=== PATIENT | female | born 1970 | race Asian ===

== ENCOUNTER 2024-09-23 12:55 | Outpatient (REF) | payer OTHER, SELFPAY ==
--- OUTSIDE RECORDS SUMMARY | 2024-09-23 13:54 | XMS_ITS | Patient Health Record ---
Author Organization [employer] Address [address] [facility] [address] [place] [address] Care Team Providers Care Legal Receptionist Name Role Phone Paige Lundberg Unavailable [phone] Allergies Allergen (clinical drug ingredient) Drug/Non Drug Allergy documented on EMR Reaction Allergy Type Onset Date Status Contrast Dye (uncoded) Unknown Allergy Active Reason For Referral No Information Social History Tobacco Use: Social History Observation [...] last smoked? Grea ter than 10 years Problems Problem Type SNOMED Code ICD Code Onset Dates Problem Status W/U Status Risk Notes Problem Cervical high risk human papillomavirus (HPV) DNA test positive (R87.810) Active confirmed Problem Fibroadenosis of left breast (1148197051722377 0) Fibroadenosis of left breast (N60.22) Active confirmed Encounters Encounter Location Date Provider Diagnosis [facility] [address] [facility] [address] [place] [address] 05/02/2024 Paige Lundberg Plan Of Treatment Pending Test Test Name Order Date MM Digital Mammo Screening 09/27/2022 Insurance Providers Payer Name Payer Address Payer Phone Subscriber Number Group Number Insured Name Patient Relationship to Insured Coverage Start Date Coverage End Date [facility] [address] [place] [address] [id number] DEJON BARON Spouse - patient is the spouse of the insured Medical (General) History Medical History History ICD Code Fibroadenosis of left breast N60.22 Inconclusive mammogram R92.2 Cervical high risk human papillomavirus (HPV) DNA test positive R87.810 Mammographic heterogeneous density, bila teral breasts R92.333 Dense breasts, unspecified R92.30 Surgical History Surgery Date(Month/Year) Left Breast Biopsy Hospitalization History Reason Date(Month/Year) 1 Vaginal Delivery
== END 2024-09-23 12:56 | disposition home or self-care (01) ==
LOC: CF 12:55
DX: Z13.89 Encounter for screening for other disorder (principal)

== ENCOUNTER 2024-10-02 09:29 | Outpatient (AMB) | payer OTHER, SELFPAY ==
--- OUTSIDE RECORDS SUMMARY | 2024-10-02 09:59 | XMS_ITS | Patient Health Record ---
Author Organization [employer] Address [address] [facility] [address] [place] [address] Care Team Providers Care Hub Bander Name Role Phone Paige Lundberg Unavailable [phone] Allergies Allergen (clinical drug ingredient) Drug/Non Drug [...] Active confirmed Problem Fibroadenosis of left breast (6421610225823558 0) Fibroadenosis of left breast (N60.22) Active confirmed Encounters Encounter Location Date Provider Diagnosis [facility] [facility] [address] [facility] [address] [place] [address] 05/02/2024 Paige Lundberg Plan Of Treatment Pending Test Test Name Order Date MM Digital Mammo Screening 09/27/2022 Insurance Providers Payer Name Payer Address Payer Phone Subscriber Number Group Number Insured Name Patient Relationship to Insured Coverage Start Date Coverage End Date [facility] [address] [place] [address] [id number] DEJON BARON Spouse - patient is the [...]
--- OUTSIDE RECORDS SUMMARY | 2024-10-02 10:00 | XMS_ITS ---
Author Name [facility] Organization Unknown Care Team Organization Name Specialty Phone Email Start Date End Da te [employer] 01/22/2024
[2024-10-02 10:15] VITALS: BMI 28.3
--- NOTE | 2024-10-02 10:15 | MHC.OFFVIS ---
Vital Signs 10/02/24 10:15 Height 5 ft 1 in Weight 150 lb BMI 28.3 Intake Visit Reasons: FC-UC/ F/u Possible RT hand fx Intake Note: right hand dominant female presents today for her right hand W/C injury DOI 09/05/24. 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 She put her hand out to break her fall and felt immediate pain. Seen at urgent care where xrays were done and was told its sprain. She returned 6 days later and was told she she has fracture. Currently states she has been wearing a brace for support however at times she has pain with brace on. States ice helps. Denies numbness, tingling or locking of any finger. Allergies iodine Adverse Reaction (Intermediate, Verified 10/02/24 10:19) rashes HPI HPI FC-UC/ F/u Possible RT hand fx: Details: Fabiola is a 53 year old right hand dominant woman who presents for a right wrist injury, DOI: ~09/05/24. This is a workplace injury. She was seen at Urgent care and given a velcro wrist splint. She complains of pain in her whole wrist. She says she has more pain when her splint is removed, but she occasionally has pain even while wearing the splint. She finds relief from icing her wrist. She says she is unable to java lead developer & twist any objects, including opening jars or turning the rascon in her car. She denies any numbness or tingling. 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 Review of Systems Const All systems reviewed & are unremarkable except as noted in HPI and below Physical Exam Vital Signs: BMI result Body Mass Index 28.3 Const General: cooperative, healthy appearing and no acute distress Orientation/consciousness: patient oriented x3 HEENT Head: Yes normocephalic and Yes atraumatic Eyes EOM: EOMs intact bilaterally Resp Effort & Inspection: normal respiratory effort and able to speak in complete sentences Cardio Jugular venous distension: no JVD Skin General skin exam: turgor normal Rashes: no rashes Neuro General: patient oriented x3 Extrem Other: Evaluation of Right Upper Extremity: The patient is alert, oriented, and in no acute distress Neuro: Median, Ulnar, Radial nerves motor and sensory intact and sensation is normal to the tips of all digits Vascular: Cap refill brisk ROM: She can make a fist and extend all her digits Wrist ROM: Flexion: ~60 degrees Extension: ~60 degrees Nearly full & symmetrical pronosupination Skin: No lacerations or abrasions. General: No Ecchymosis. No Erythema or evidence of infection. Minimal tenderness over the distal radius Mild tenderness over the 4th metacarpal No tenderness over the DRUJ or distal ulna DRUJ stable on exam No snuffbox or scaphoid tubercle tenderness Radiographs: 3 views of the right hand were taken & viewed by me today in clinic. They show a transverse nondisplaced distal radius fracture, with satisfactory fracture alignment & some evidence of interval bony healing Psych Appearance: grossly normal Affect: normal affect Attitude: cooperative Office Procedures AMB Fracture Care Details: Distal radius fracture 66787 Fracture Billing Code: Fracture Billing Code Assessment & Plan Assessment & Plan (1) Distal radius fracture, right: Code(s): S52.501A - Unspecified fracture of the lower end of right radius, initial encounter for closed fracture Category: Medical Plan Assessment & Plan: 1. Right distal radius fracture, S/P fall DOI: ~09/05/24 This was managed conservatively at Urgent care This is a workplace injury I educated her about this condition I discussed non-operative treatment options We will continue to manage this non-operatively She will continue to wear her velcro wrist splint when out of the house with daily activities, or work around the house, for the next 2 weeks She will remove her splint at rest and at night I discussed activity modifications, she is to lift nothing heavier than ~2lbs for the next week, and slowly increase her weight limit as tolerated over the next month. She is to avoid any heavy lifting, impact activities, or falling for the next 4 weeks She will perform gentle finger & wrist ROM exercises at home, out of her splint. 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 She was given a note for work to return on light duty, with a 5lb weight limit, effective 10/14/24, for 2 weeks. She can return to full duty in 4 weeks from today She will follow up in 4 weeks for a ROM check. Anticipate return to full duty at that time Scribed for Zee Alarcon MD by Antonio Foss, vice president medical affairs, on 10/02/24 at 10:25 AM, EST. Orders: Orders XR hand RT min 3V Today M79.641 - Pain in right hand Coding Level of Care Code New Pt Level 4 (40298) Diagnoses Distal radius fracture, right S52.501A CPT Codes Fracture Care - Fracture Billing Code: Fracture Billing Code ([id number])
== END 2024-10-02 10:55 | disposition home or self-care (01) ==
LOC: HO.HOS 09:29
PROVIDERS: Visit Provider Orthopaedic Surgery
DX: S52.501A Unspecified fracture of the lower end of right radius, initial encounter for closed fracture (principal)
CPT/HCPCS: 99204

== ENCOUNTER → 2024-10-02 09:34 | Outpatient (BNV) | payer OTHER, SELFPAY | PROVIDERS: Visit Provider Radiology Diagnostic Radiology | DX: M79.641 Pain in right hand (principal) | CPT/HCPCS: 73130 ==

== ENCOUNTER 2024-10-02 11:05 | Outpatient (REF) | payer OTHER, SELFPAY ==
--- NOTE | ~2024-10-02 | XR_ITS ---
EXAMINATION: XR HAND, RIGHT CLINICAL INFORMATION: M79.641 - Pain in right hand COMPARISON: Right wrist 09/06/2024. TECHNIQUE: PA, lateral, and oblique views of the right hand. FINDINGS: No fracture, dislocation, or suspicious bone lesion. There is normal alignment. No periarticular osteopenia. No erosions. Joint spaces appear normal. Carpal bones are intact and normally aligned. Normal soft tissues. XR/XR hand RT min 3V IMPRESSION: Normal right hand. Electronically signed by: Taco Romano MD 10/02/2024 09:55 AM EDT
--- OUTSIDE RECORDS SUMMARY | 2024-10-03 11:58 | XMS_ITS | Patient Health Record ---
Author Organization [employer] [facility] Address [address] [address] Care Team Providers Care Bake Room Worker Name Role Phone Paige Lundberg Unavailable [phone] Allergies Allergen (clinical drug ingredient) Drug/Non Drug [...] Problem Status W/U Status Risk Notes Problem Human papilloma virus deoxyribonucleic acid test positive, high risk on vaginal specimen (407940020765177) Cervical high risk human papillomavirus (HPV) DNA test positive (R87.810) Active confirmed Problem Fibroadenosis of left breast (91681637651664503) Fibroadenosis of left breast (N60.22) Active confirmed Encounters Encounter Location Date Provider Diagnosis [facility] [address] [address] 05/02/2024 Paige Lundberg Plan Of Treatment Pending Test Test Name Order Date MM Digital Mammo Screening 09/27/2022 Insurance Providers Payer Name Payer Address Payer Phone Subscriber Number Group Number Insured Name Patient Relationship to Insured Coverage Start Date Coverage End Date [facility] [address] [place] [address] [phone] [id number] DEJON BARON Spouse - patient is the [...]
== END 2024-10-02 11:06 | disposition home or self-care (01) ==
LOC: HO.HOSX 11:05
PROVIDERS: Visit Provider Orthopaedic Surgery
DX: S52.501D Unspecified fracture of the lower end of right radius, subsequent encounter for closed fracture with routine healing (principal); M79.641 Pain in right hand; W01.0XXD Fall on same level from slipping, tripping and stumbling without subsequent striking against object, subsequent encounter; Y99.0 Civilian activity done for income or pay; Y92.242 Post office as the place of occurrence of the external cause
CPT/HCPCS: 73130; 99202

== ENCOUNTER 2024-10-29 15:16 | Outpatient (AMB) | payer OTHER, SELFPAY ==
[2024-10-29 15:21] VITALS: BMI 28.3
--- NOTE | 2024-10-29 15:21 | MHC.OFFVIS ---
Vital Signs 10/29/24 15:21 Height 5 ft 1 in Weight 150 lb BMI 28.3 Intake Visit Reasons: O/V Right distal radius fx DOI:09/05/24 Intake Note: Fabiola 53 yr old right hand dominant female presents today for her follow up visit for her Right distal radius fracture, S/P fall DOI: ~09/05/24. At her last visit she was advise to wear with brace with activities. She was also advise to work on her ROM. Currently states she has been able to return to her normal daily activities and is able to do more however patient states eh is having a hard time at work with the 5 lb restrictions. States she is having pain thought out the day. Xrays updated in office. Allergies iodine Adverse Reaction (Intermediate, Verified 10/29/24 15:25) rashes HPI HPI O/V Right distal radius fx DOI:09/05/24: Details: Fabiola is a 53 year old right hand dominant woman who returns for her right distal radius fracture, DOI: ~09/05/24. This is a workplace injury. She was seen at Urgent care and given a velcro wrist splint. She says her pain has started to improve overall, and has managed to return to most normal lightweight activities. She has been working in the [employer] office with a 5lb weight limit for the last 2 weeks, but she says this is difficult for her and she experiences wrist pain throughout the day. She says her pain begins in her middle finger and radiates into her wrist, and she says this occasionally wakes her up at night. She has been wearing her splint as instructed and working on ROM exercises at home. She denies any numbness or tingling. 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 Radiographs: 3 views of the right hand were taken & viewed by me today in clinic. They show a transverse nondisplaced distal radius fracture, non-displaced, with satisfactory fracture alignment & evidence of interval bony healing best seen on the PA view. Assessment & Plan Assessment & Plan (1) Distal radius fracture, right: Code(s): S52.501A - Unspecified fracture of the lower end of right radius, initial encounter for closed fracture Category: Medical Plan Assessment & Plan: 1. Right distal radius fracture, S/P fall DOI: ~09/05/24 This was managed conservatively at Urgent care This is a workplace injury I educated her about this condition I discussed non-operative treatment options We will continue to manage this non-operatively She will discontinue her splint at this time. I discussed activity modifications, she is to use her hand for normal daily activities & continue to work on ROM exercises at home. She is still to avoid any impact activities or falls for the next 4 weeks. I explained that we anticipate full fracture healing 8-12 weeks post injury I ordered OT hand therapy to work on strengthening and normalizing function in anticipation of return to full duty next visit. 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 She was given a note for work to return to light duty, with a 5lb weight limit with her RUE, effective 10/30/24, until her next appointment. Allow time to ice for ten minutes q-shift. She will follow up in 4 weeks to see how she is doing and to discuss her return to work. No X-rays unless she continues to have pain. Scribed for Zee Alarcon MD by Antonio Foss, medical radiation therapist, on 10/29/24 at 4:05 PM, EST. Orders: Orders OT Evaluation and Treatment Today S52.501A - Unspecified fracture of the lower end of right radius, initial encounter for closed fracture Coding Level of Care Code Global (60339) Diagnoses Distal radius fracture, right S52.501A
--- OUTSIDE RECORDS SUMMARY | 2024-10-29 16:33 | XMS_ITS | Patient Health Record ---
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
== END 2024-10-29 16:21 | disposition home or self-care (01) ==
LOC: HO.HOS 15:17
PROVIDERS: Visit Provider Orthopaedic Surgery
DX: S52.501A Unspecified fracture of the lower end of right radius, initial encounter for closed fracture (principal)
CPT/HCPCS: 99213

== ENCOUNTER → 2024-10-29 15:16 | Outpatient (BNVA) | payer OTHER, SELFPAY | PROVIDERS: Visit Provider Orthopaedic Surgery | DX: M79.641 Pain in right hand (principal); S52.501A Unspecified fracture of the lower end of right radius, initial encounter for closed fracture | CPT/HCPCS: 99212 ==

== ENCOUNTER 2024-11-26 10:44 | Outpatient (REF) | payer OTHER, BC, SELFPAY ==
--- OUTSIDE RECORDS SUMMARY | 2023-10-03 04:40 | XMS_ITS ---
Author Organization [facility] Address [address] [place] [address] Care Team Providers Care Outplacement Consultant Name Role Phone Paige Lundberg Unavailable [phone] Allergies Allergen (clinical drug ingredient) Drug/Non Drug Allergy documented on EMR Reaction Allergy Type Onset Date Status Contrast Dye (uncoded) Unknown Allergy Active REASON FOR VISIT Annual PROCESS TECH Physical Encounters Encounter Location Date Provider Diagnosis [facility] [address] [address] 10/03/2023 Paige Lundberg Plan Of Treatment No Information Progress Notes * TIEN BARONDOB:1970 (53 yo F)Acc No.[id number]:10/03/2023 PROGRESS NOTES Patient: TIEN MURILLO Appointment Provider: Sima Lundberg M.D. :1970 A ge:52 Y S ex:Female Date:10/03/2023 Address:[address] [place], [place] [phone] Subjective: * Chief Complaints: * 1 . Annual PROCESS TECH Physical. * Medical History: F ibroadenosis of left breast, Inconclusive mammogram, Cervical high risk human papillomavirus (HPV) DNA test positive, Mammographic heterogeneous density, bilateral breasts. * Front Office Supervisor History: G ravida/ Para 1 /1. S [...] Electronic signature of Dawit Lundberg MD on 11/27/2024 at 01:35 PM EDT Sign off status: Pending * Appointment Provider: Sima Lundberg M.D. Date: 0 10/03/2023 Generated for Clifton quijano/Florentin/Dawsonitting on: 0 11/27/2024 01:35 PM EDT
--- OUTSIDE RECORDS SUMMARY | 2024-01-26 07:00 | XMS_ITS ---
Author Organization [facility] Address [address] [place] [address] Care Team Providers Care Job Developer For Deaf Adults Name Role Phone Paige Lundberg Unavailable [phone] Allergies Allergen (clinical drug ingredient) Drug/Non Drug Allergy documented on EMR Reaction Allergy Type Onset Date Status Contrast Dye (uncoded) Unknown Allergy Active REASON FOR VISIT Annual (YELLOW FORM DONE) Encounters Encounter Location Date Provider Diagnosis [facility] [address] [address] [address] 01/26/2024 Paige Lundberg Plan Of Treatment No Information Progress Notes * TIEN BARONDOB:1970 (53 yo F)Acc No.[id number]:01/26/2024 PROGRESS NOTES Patient: TIEN MURILLO Appointment Provider: Sima Lundberg M.D. :1970 A ge:53 Y S ex:Female Date:01/26/2024 Address:[address] [place], [place] [id number] Subjective: * Chief Complaints: * 1 . Annual (YELLOW FORM DONE). * Medical History: F ibroadenosis of left breast, Inconclusive mammogram, Cervical high risk human papillomavirus (HPV) DNA test positive, Mammographic heterogeneous density, bilateral breasts. * Calciner Operator Helper History: G ravida/ Para 1 /. S [...] 03/27/2023 Generated for Clifton quijano/Florentin/Dawsonitting on: 0 11/27/2024 01:35 PM EDT
--- OUTSIDE RECORDS SUMMARY | 2024-05-02 09:00 | XMS_ITS ---
Author Organization [facility] Address [address] [place] [address] Care Team Providers Care Rattlesnake Farmer Name Role Phone Paige Lundberg Unavailable [phone] Allergies Allergen (clinical drug ingredient) Drug/Non Drug Allergy documented on EMR Reaction Allergy Type Onset Date Status Contrast Dye (uncoded) Unknown Allergy Active REASON FOR VISIT Annual (YELLOW FORM DONE) Social History Tobacco Use: Social History Observation Description Date Details (start date - stop date) Former Smoker NA - NA Sexual History Question Answer Notes Had sex in the past 12 months (vaginal, oral, or anal)? No AUDIT-C (Standard) Question Answer Notes Did you have a drink containing alcohol in the p ast year? No Points 0 Interpretation Negative Tobacco Control (Standard) Question Answer Notes Tobacco use: Former smoker How long has it been since you last smoked? Grea ter than 10 years Encounters Encounter Location Date Provider Diagnosis [address] [address] 05/02/2024 Paige Lundberg Plan Of Treatment No Information Progress Notes * BALTAZAR BARONDOB:1970 (53 yo F)Acc No.[id number]:05/02/2024 PROGRESS NOTES Patient: TIEN MURILLO Appointment Provider: Sima Lundberg M.D. :1970 A ge:53 Y S ex:Female Date:05/02/2024 Address:[address] [place] [address] Subjective: * Chief Complaints: * 1 . Annual (YELLOW FORM DONE). * Medical History: F ibroadenosis of left breast, Inconclusive mammogram, Cervical high risk human papillomavirus (HPV) DNA test positive, Mammographic heterogeneous density, bilateral breasts, Dense breasts, unspecified. * Throw Out Clerk History: G ravida/ Para 1 /1. S [...] 1 . N VD 1 . * Social History: T obacco Use: T obacco Control (Standard) T obacco use: F ormer smoker H ow long has it been since you last smoked??Greater than 10 years S exual History: S exual History H ad sex in the past 12 months (vaginal, oral, or anal)? N o Details of Sexual History A re you sexually active? N o D rugs/Alcohol: D rugs H ave you used drugs other than those for medical reasons in the past 12 months? N o M iscellaneous: C hildren: yes, 1. Exercise: yes, yoga, pilates, walking. Home smoke detector use: yes. Marital status: . Natural support system: yes. 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 Sexually active: no. D rug/Alcohol: A ANABELLA-C (Standard) D id you have a drink containing alcohol in the past year? N o P oints 0 I nterpretation N egative * Allergies: C ontrast Dye: Allergy. Objective: * Vitals: Assessment: Plan: * Treatment: * Images: Billing Information: * Visit Code: * Procedure Codes: * Electronic signature of Dawit Lundberg MD on 11/27/2024 at 01:35 PM EDT Sign off status: Pending * Appointment Provider: Sima Lundberg M.D. Date: 0 05/02/2024 Generated for Clifton quijano/Florentin/eTgennaitting on: 0 11/27/2024 01:35 PM EDT
--- NOTE | ~2024-11-26 | XR_ITS ---
EXAMINATION: XR WRIST 3 OR MORE VIEWS RIGHT HISTORY: M25.531 - Pain in right wrist COMPARISON: Comparison is made with the prior examination dated 10/02/2024. FINDINGS: Three views of the right wrist are submitted. Osseous mineralization is normal. There is no fracture or dislocation. The joint spaces are preserved. The soft tissues are unremarkable. XR/XR wrist RT min 3V IMPRESSION: Unremarkable examination of the right wrist. Electronically signed by: Jose Molina MD 11/26/2024 03:45 PM EDT
--- OUTSIDE RECORDS SUMMARY | 2024-11-27 13:36 | XMS_ITS | Patient Health Record ---
Author Organization 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
== END 2024-11-26 10:45 | disposition home or self-care (01) ==
LOC: HO.HOSX 10:44
PROVIDERS: Visit Provider Orthopaedic Surgery
DX: S52.501D Unspecified fracture of the lower end of right radius, subsequent encounter for closed fracture with routine healing (principal); W19.XXXD Unspecified fall, subsequent encounter
CPT/HCPCS: 73110; 99212

== ENCOUNTER 2024-11-26 15:26 | Outpatient (AMB) | payer OTHER, SELFPAY ==
--- OUTSIDE RECORDS SUMMARY | 2023-10-03 04:40 | XMS_ITS ---
Author Organization [facility] Address [address] [place] [address] Care Team Providers Care Motor Analyst Name Role Phone Paige Lundberg Unavailable [phone] Allergies Allergen (clinical drug ingredient) Drug/Non Drug Allergy documented on EMR Reaction Allergy Type Onset Date Status Contrast Dye (uncoded) Unknown Allergy Active REASON FOR VISIT Annual CLINICAL SCIENCE LIAISON Physical Encounters Encounter Location Date Provider Diagnosis [facility] [address] [address] 10/03/2023 Paige Lundberg Plan Of Treatment No Information Progress Notes * TINE BARONDOB:1970 (53 yo F)Acc No.[id number]:10/03/2023 PROGRESS NOTES Patient: TIEN MURILLO Appointment Provider: Sima Lundberg M.D. :1970 A ge:52 Y S ex:Female Date:10/03/2023 Address:[address] [place], [place] [id number] Subjective: * Chief Complaints: * 1 . Annual CLINICAL SCIENCE LIAISON Physical. * Medical History: F ibroadenosis of left breast, Inconclusive mammogram, Cervical high risk human papillomavirus (HPV) DNA test positive, Mammographic heterogeneous density, bilateral breasts. * Office Machine Inspector History: G ravida/ Para 1 /1. S exual activity n ot currently sexually active. L ast Pap Smear: NIL, NEG HPV, Endometrial Cells on pap, 1989. M ammogram: 50-75% density, 06/22/21, 50-75% density. A bnormal Pap Smear: H PV 1988. L MP and menses M gregory. C olonoscopy n o. * OB History: T otal pregnancies 1 . T otal living children 1 . N VD 1 . * Allergies: C ontrast Dye: Allergy. Objective: * Vitals: Assessment: Plan: * Treatment: * Images: Billing Information: * Visit Code: * Procedure Codes: * Electronic signature of Dawit Lundberg MD on 11/26/2024 at 06:48 PM EDT Sign off status: Pending * Appointment Provider: Sima Lundberg M.D. Date: 0 10/03/2023 Generated for Clifton quijano/Florentin/Dawsonitting on: 0 11/26/2024 06:48 PM EDT
--- OUTSIDE RECORDS SUMMARY | 2024-01-26 07:00 | XMS_ITS ---
Author Organization [facility] Address [address] [place] [address] Care Team Providers Care Pet Sitter Name Role Phone Paige Lundberg Unavailable [phone] Allergies Allergen (clinical drug ingredient) Drug/Non Drug Allergy documented on EMR Reaction Allergy Type Onset Date Status Contrast Dye (uncoded) Unknown Allergy Active REASON FOR VISIT Annual (YELLOW FORM DONE) Encounters Encounter Location Date Provider Diagnosis [facility] [address] [address] 01/26/2024 Paige Lundberg Plan Of Treatment No Information Progress Notes * TIEN BARONDOB:1970 (53 yo F)Acc No.[id number]:01/26/2024 PROGRESS NOTES Patient: TIEN MURILLO Appointment Provider: Sima Lundberg M.D. :1970 A ge:53 Y S ex:Female Date:01/26/2024 Address:[address] [place], [place] [id number] Subjective: * Chief Complaints: * 1 . Annual (YELLOW FORM DONE). * Medical History: F ibroadenosis of left breast, Inconclusive mammogram, Cervical high risk human papillomavirus (HPV) DNA test positive, Mammographic heterogeneous density, bilateral breasts. * Pals Specialist History: G ravida/ Para 1 /. S exual activity n ot currently sexually active. L ast Pap Smear: NIL, NEG HPV, Endometrial Cells on pap, 1989. M ammogram: 50-75% density, 4/12/22, 50-75% density. A bnormal Pap Smear: H PV 1989. L MP and menses M gregory. C olonoscopy n o. * OB History: T otal pregnancies 1 . T otal living children 1 . N VD 1 . * Allergies: C ontrast Dye: Allergy. Objective: * Vitals: Assessment: Plan: * Treatment: * Images: Billing Information: * Visit Code: * Procedure Codes: * Electronic signature of Dawit Lundberg MD on 11/26/2024 at 06:47 PM EDT Sign off status: Pending * Appointment Provider: Sima Lundberg M.D. Date: 1 03/27/2023 Generated for Clifton quijano/Florentin/Dawsonitting on: 0 11/26/2024 06:47 PM EDT
--- OUTSIDE RECORDS SUMMARY | 2024-05-02 09:00 | XMS_ITS ---
Author Organization [facility] Address [address] [place] [address] Care Team Providers Care Unionmelt Operator Name Role Phone Paige Lundberg Unavailable [phone] Allergies Allergen (clinical drug ingredient) Drug/Non Drug [...] years Encounters Encounter Location Date Provider Diagnosis [address] [address] 05/02/2024 Paige Lundberg Plan Of Treatment No Information Progress Notes * BALTAZAR BARONDOB:1970 (53 yo F)Acc No.[id number]:05/02/2024 PROGRESS NOTES Patient: TIEN MURILLO Appointment Provider: Sima Lundberg M.D. :1970 A ge:53 Y S ex:Female Date:05/02/2024 Address:[address] [place] [address] Subjective: * Chief Complaints: * 1 . Annual (YELLOW FORM DONE). * Medical History: F ibroadenosis of left breast, Inconclusive mammogram, Cervical high risk human papillomavirus (HPV) DNA test positive, Mammographic heterogeneous density, bilateral breasts, Dense breasts, unspecified. * Electronic Scale Tester History: G ravida/ Para 1 /1. S [...] Natural support system: yes. 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 Sexually active: no. D rug/Alcohol: A ANABELLA-C [...] 05/02/2024 Generated for Clifton quijano/Florentin/eTgennaitting on: 0 11/26/2024 06:47 PM EDT
--- NOTE | 2024-11-26 15:45 | A.OFFVIS_ITS ---
Vital Signs 11/26/24 15:56 Height 5 ft 1 in Weight 150 lb BMI 28.3 Handedness Right Intake Visit Reasons: O/V Right distal radius fx DOI:09/05/24 w/xray Intake Note: Fabiola 53 year old right hand dominant woman who presents today for her follow up visit for her right distal radius fracture, S/P fall DOI: ~09/05/24. At her last visit, she was advise to start O.T, she was given a work not with light duty restrictions with a 5lb weight limit. Today patient states she started occupational therapy 3 weeks ago and had an appointment before this visit. She feels improvement and has noticed more strength and mobility in the hand. She stays consistent with her home exercises and says they are extremely helpful. Denies numbness and tingling. Allergies iodine Adverse Reaction (Intermediate, Verified 11/26/24 15:58) rashes HPI HPI O/V Right distal radius fx DOI:09/05/24 w/xray: Details: Fabiola is a 53 year old right hand dominant woman who returns for her right distal radius fracture, DOI: ~09/05/24. This is a workplace injury, and was treated in a cast. She has been attending OT hand therapy and says she feels some improvement in her ROM & strength, which she is happy about. She has been working light duty & icing her wrist, which she says is going well. She denies any numbness or tingling. 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 Review of Systems Const All systems reviewed & are unremarkable except as noted in HPI and below Physical Exam Vital Signs: BMI result Body Mass Index 28.3 Const General: no acute distress and alert Orientation/consciousness: patient oriented x3 Neuro General: patient oriented x3 Extrem Other: Evaluation of Right Upper Extremity: The patient is alert, oriented, and in no acute distress Neuro: Median, Ulnar, Radial nerves motor and sensory intact and sensation is normal to the tips of all digits Vascular: Cap refill brisk ROM: She can make a fist and extend all her digits Wrist ROM: Symmetrical pronosupination Nearly symetrical flexion & extension, lacking perhaps ~10 degrees of each with her right wrist Fracture completely nontender Radiographs: 3 views of the right hand were taken & viewed by me today in clinic. They show a transverse nondisplaced distal radius fracture, non-displaced, with satisfactory fracture alignment & evidence of interval bony healing best seen on the PA view. Psych Appearance: grossly normal Affect: normal affect Attitude: cooperative Assessment & Plan Assessment & Plan (1) Distal radius fracture, right: Code(s): S52.501A - Unspecified fracture of the lower end of right radius, initial encounter for closed fracture Category: Medical Plan Assessment & Plan: 1. Right distal radius fracture, S/P fall DOI: ~09/05/24 We managed this conservatively in a cast This is a workplace injury I educated her about this condition I discussed activity modifications, she is to use her hand for normal daily activities & continue to work on ROM exercises at home. She should continue to attend OT hand therapy to work on stretching, strengthening, and normalizing function in anticipation of return to full duty next visit. 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 I do think that she needs to be increasing what she is doing at work. She was given a note for work to return to light duty, increasing to a 20lb weight limit , effective 11/27/24 until her next appointment. She will follow up in 4-6 weeks for a ROM check with hopes of returning her to full duty at that time. No radiographs. Scribed for Zee Alarcon MD by Antonio Foss, medical radiation tech, on 11/26/24 at 4:20 PM, EST. Orders: Orders XR wrist RT min 3V Today M25.531 - Pain in right wrist Coding Level of Care Code Global (91425) Diagnoses Distal radius fracture, right S52.501A
[2024-11-26 15:56] VITALS: BMI 28.3
--- OUTSIDE RECORDS SUMMARY | 2024-11-26 18:48 | XMS_ITS | Patient Health Record ---
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
== END 2024-11-26 16:29 | disposition home or self-care (01) ==
LOC: HO.HOS 15:26
PROVIDERS: Visit Provider Orthopaedic Surgery
DX: S52.501A Unspecified fracture of the lower end of right radius, initial encounter for closed fracture (principal)
CPT/HCPCS: 99213

== ENCOUNTER → 2024-11-26 15:31 | Outpatient (BNV) | payer OTHER, SELFPAY | PROVIDERS: Visit Provider Radiology Diagnostic Radiology | DX: M25.531 Pain in right wrist (principal) | CPT/HCPCS: 73110 ==

== ENCOUNTER 2024-12-10 14:33 | Outpatient (RCR) | payer OTHER, BC, SELFPAY ==
--- NOTE | 2024-11-12 15:08 | MHC.OT.EP ---
[facility] Office [address] [facility] [phone] F: [phone] F: [phone] Occupational Therapy Plan of Care Patient Name: Fabiola Jaimes Date of Evaluation: 11/12/24 Diagnosis: s/p Right distal radius fracture Pain Location: Pain in right middle finger radiating to wrist and circumferential wrist Current: 2/10 'stiffness' Worst: 7/10 Pain Score: 2 Pain Scale Used: Numeric (0 - 10) Aggravating Factors: Forceful grasp, Lifting >5#, repetitive work duties Alleviating Factors: Ice, ibuprofen Assessment: Pt is a 53 y/o right hand dominant female referred to OT s/p right distal radius fracture from a work related injury. Currently states she has been able to return to her normal daily activities and is able to do more, however states she is having a hard time at work with the 5 lb restrictions. States she is having pain thought out the day and has to ice the wrist frequently. Clinically, she presents with some stiffness with wrist extension and decreased gross grasp strength (50# on the R compared to 60# on the L). Quick DASH score of 38.6% indicates a moderate level of disability or severity of symptoms in the hand/wrist. She is concerned with returning to work full duty as she is expected to continuously lift >30# for long hours. Fabiola would benefit from skilled OT services to address noted barriers and assist in return to work duties. Frequency and Duration: The patient will be seen 2x/wk for 4 weeks Short Term Goals: STG's=LTG's Correction Goals: Pain free with ADL's/IADL's Improve right gross grasp >60# Improve right wrist extension to 60 degrees Demonstrate ability to repeatedly lift and carry >25# for sustained periods without pain Treatment Plan: Therapeutic Exercise Therapeutic Activity Home Exercise Program Patient Education Edema Control Ultrasound MHP Cold Packs Joint Mobilization Electronically Signed By: Jennifer Mack MS OTR/L Please Sign and return to therapist. Thank you once again for your referral.
== END 2025-01-29 13:16 | disposition home or self-care (01) ==
LOC: HO.OTS 14:33
PROVIDERS: Visit Provider Orthopaedic Surgery
DX: S52.501D Unspecified fracture of the lower end of right radius, subsequent encounter for closed fracture with routine healing (principal)
CPT/HCPCS: 97035; 97110; 97165

== ENCOUNTER 2025-01-07 13:45 | Outpatient (AMB) | payer OTHER, SELFPAY ==
[2025-01-07 13:51] VITALS: BMI 28.3
--- NOTE | 2025-01-07 13:51 | A.OFFVIS_ITS ---
Vital Signs 01/07/25 13:51 Height 5 ft 1 in Weight 150 lb BMI 28.3 Intake Visit Reasons: O/V Right distal radius fx DOI:09/05/24 Intake Note: Fabiola is a 53 year old right hand dominant woman who returns for her right distal radius fracture, DOI: ~09/05/24. This is a workplace injury, and was treated in a cast. At her last visit with Dr. Alarcon, patient was advise to use her hand for normal daily activities & continue to work on ROM exercises at home, continue to attend OT hand therapy to work on stretching, strengthening, and normalizing function in anticipation of return to full duty next visit. 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 Patient continues to linda tape. Allergies iodine Adverse Reaction (Intermediate, Verified 01/07/25 13:57) rashes HPI HPI O/V Right distal radius fx DOI:09/05/24: Details: Fabiola is a 54 year old right hand dominant woman who returns for her right distal radius fracture, DOI: ~09/05/24. This is a workplace injury, and was treated in a cast. She has been attending OT hand therapy and says she feels her construction code administrator strength and ROM has improved, however she continues to get occasional and not reproducible sharp radiating pains up her middle finger and into her dorsal aspect of hand. She says she has less pain when she holds her middle & ring fingers taped together and is seen today with some cellophane tape holding the ring and small fingers together.. She has been working light duty, with a 20lb weight limit, & icing her wrist, which she says is going well. 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 Physical Exam Vital Signs: BMI result Body Mass Index 28.3 Const General: no acute distress and alert Orientation/consciousness: patient oriented x3 Neuro General: patient oriented x3 Extrem Other: Evaluation of Right Upper Extremity: The patient is alert, oriented, and in no acute distress sensation is normal to the tips of all digits She can make a fist and extend all her digits Symmetrical pronosupination Nearly symmetrical flexion & extension Fracture site completely nontender DRUJ & distal ulna non-tender Patient reports pain across the dorsum of her hand, which resolves when her middle & ring fingers are Linda-tapes No pain with resisted extension of any of the fingers. She demonstrates that she often gets pain that radiates up the interspace between the ring and middle fingers to about the CMC joint level. No tenderness there today. This pain is not reproducible today. No swelling. She can make a fist and extend all of her digits without difficulty. Radiographs: 3 views of the right hand were taken last visit and viewed by me today in clinic. They show a transverse nondisplaced distal radius fracture, non- displaced, with satisfactory fracture alignment & evidence of interval bony healing best seen on the PA view. Psych Appearance: grossly normal Affect: normal affect Attitude: cooperative Assessment & Plan Assessment & Plan (1) Distal radius fracture, right: Code(s): S52.501A - Unspecified fracture of the lower end of right radius, initial encounter for closed fracture Category: Medical (2) Right hand pain: Code(s): M79.641 - Pain in right hand Category: Medical Plan Assessment & Plan: 1. Right distal radius fracture, S/P fall DOI: ~09/05/24 We managed this conservatively in a cast This is a workplace injury Her distal radius fracture has gone on to heal well. 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 The patient says that she feels that she is ready to return to work at full duty. She was given a note for work to return to full duty, effective 01/08/25. 2. Occasional pain in the dorsal aspect of the right hand radiating from the interspace between the middle and ring fingers up to about the CMC level. Etiology unclear, symptoms occasional and not reproducible. Again she has worked with OT and feels like she is ready to return to the work force at full duty. She is more comfortable taping her middle and ring fingers together saying this prevents the sharp pains from happening. Recommended she look up Velcro linda tape from [employer] as this may be easier for her to apply and wear. She will follow up prn Scribed for Zee Alarcon MD by Antonio Foss, medical claims manager, on 01/07/25 at 2:10 PM, EST. Coding Level of Care Code Est Pt Level 3 (77243) Diagnoses Distal radius fracture, right S52.501A Right hand pain M79.641
== END 2025-01-07 14:19 | disposition home or self-care (01) ==
LOC: HO.HOS 13:46
PROVIDERS: Visit Provider Orthopaedic Surgery
DX: S52.501A Unspecified fracture of the lower end of right radius, initial encounter for closed fracture (principal); M79.641 Pain in right hand
CPT/HCPCS: 99213

== ENCOUNTER → 2025-01-07 13:45 | Outpatient (BNVA) | payer OTHER, BC, SELFPAY | PROVIDERS: Visit Provider Orthopaedic Surgery | DX: S52.501A Unspecified fracture of the lower end of right radius, initial encounter for closed fracture (principal); M79.641 Pain in right hand | CPT/HCPCS: 99212 ==